=== PATIENT | female | born 2000 | race Caucasian/White ===

== ENCOUNTER 2022-11-27 13:08 | Emergency (ER) | payer BC ==
[~2022-11-27] VITALS: Ht 165.1 cm; Wt 59.0 kg
[2022-11-27] MEDS ORDERED: GABAPENTIN 300MG CAPSULE PO SCH (14:15)
[2022-11-27] MEDS ORDERED: GABA-532 MT (16:02)
== END 2022-11-27 16:56 | disposition home or self-care (01) ==
LOC: ER 13:08
DX: M26.602 Left temporomandibular joint disorder, unspecified (principal); J45.909 Unspecified asthma, uncomplicated; Z86.39 Personal history of other endocrine, nutritional and metabolic disease
CPT/HCPCS: 70486; 99284